=== PATIENT | female | born 1990 | race African-American/Black ===

== ENCOUNTER 2020-04-09 06:54 | Outpatient (NON) | payer OTHER, SELFPAY ==
[2020-04-09 11:17] LABS: Influenza Control Positive
== END 2020-04-09 06:55 ==
LOC: ANHCOVIDDT 07:11
PROVIDERS: PCP Family Medicine; Visit Provider Family Medicine
DX: R50.9 Fever, unspecified (principal)
CPT/HCPCS: 87804